=== PATIENT | male | born 1985 | race Two or more races ===

== ENCOUNTER 2018-10-17 23:29 | Emergency (ER) | payer SELFPAY ==
[~2018-10-17] VITALS: Ht 182.9 cm; Wt 80.3 kg
--- NOTE | 2018-10-17 23:46 | NUR ---
Note annaleeone in EDM - 10/17/18 at 2349 by PONCHO BIBSELF TO ER. TO ER BED 9. AAOX4. NO RESP DISTRESS NOTED. AMBULATORY. C/O BILATERAL INNER THIGH NUMBNESS WHICH IS FELT ALL THE WAY TO THE ANKLE X 5 DAYS. PT REPORTS FEELING LIGHT HEADED AND NAUSEOUS. PT ALSO REPORTS THAT HE SEES BLACK SPOTS. AWAITING MD FOR ANAYELI.
--- NOTE | 2018-10-17 23:49 | NUR ---
BIBSELF TO ER. TO ER BED 9. AAOX4. NO RESP DISTRESS NOTED. AMBULATORY. C/O BILATERAL INNER THIGH NUMBNESS WHICH IS FELT ALL THE WAY TO THE ANKLE X 5 DAYS. PT REPORTS FEELING LIGHT HEADED AND NAUSEOUS. PT ALSO REPORTS THAT HE SEES BLACK SPOTS. AWAITING MD FOR EVAL.
[2018-10-18 00:31] LABS: BASOPHILS % (AUTO) 0.5 % (0.0-2.0); EOSINOPHILS % (AUTO) 2.2 % (0.0-6.0); HEMATOCRIT 40 % (39-51); HEMOGLOBIN 12.8 g/dL (13.5-17.5); MEAN CORPUSCULAR HGB CONC 33 g/dl (31.0-36.0); MEAN CORPUSCULAR VOLUME 80 fL (80-96); MONOCYTES # (AUTO) 0.6 /CMM (0.1-1.30); MONOCYTES % (AUTO) 7.5 % (2.0-12.0); NEUTROPHILS # (AUTO) 4.6 /CMM (1.8-8.9); NEUTROPHILS % (AUTO) 62.8 % (43.0-81.0); PLATELET COUNT (AUTO) 227 /CMM (150-450); RED BLOOD CELL COUNT(AUTO) 4.96 MIL/uL (4.5-6.0); WHITE BLOOD COUNT (AUTO) 7.4 K/uL (4.3-11.0)
[2018-10-18 00:46] LABS: BILIRUBIN,TOTAL 0.4 mg/dL (0.2-1.0); CALCIUM, SERUM 8.7 mg/dL (8.5-10.1); CREATININE 0.9 mg/dL (0.6-1.3); POTASSIUM 3.8 mmol/L (3.5-5.1); TOTAL PROTEIN, SERUM 7.9 g/dL (6.4-8.2)
[2018-10-18 01:31] VITALS: BP 121/74
== END 2018-10-18 01:31 | disposition home or self-care (01) ==
LOC: ER 23:35
DX: F41.9 Anxiety disorder, unspecified (principal)
CPT/HCPCS: 36415; 80053-TC; 85025-TC

== ENCOUNTER 2019-03-12 18:46 | Emergency (ER) | payer SELFPAY ==
[~2019-03-12] VITALS: Ht 182.9 cm; Wt 79.4 kg
--- NOTE | 2019-03-12 21:25 | NUR ---
IV INITIATED RAC 20G. LABS DRAWN FROM SITE CHERRY CUTTER AT BEDSIDE FOR COLLECTION
[2019-03-12] MEDS ORDERED: IV NS 0.9% 1,000 ML BAG IV ONE (21:30)
--- NOTE | 2019-03-12 21:30 | NUR ---
BIBSELF C/O ABDOMINAL PAIN. PT STATES LAST BM X6 DAYS AGO. VITAL SIGNS STABLE. NO ACUTE DISTRESS NOTED AT THIS TIME. AMBULATORY WITH STEADY GAIT. WILL CONTINUE TO MONITOR
[2019-03-12 21:31] LABS: BASOPHILS % (AUTO) 0.3 % (0.0-2.0); HEMATOCRIT 43 % (39-51); HEMOGLOBIN 13.9 g/dL (13.5-17.5); LYMPHOCYTES # (AUTO) 1.6 /CMM (0.8-4.8); LYMPHOCYTES % (AUTO) 22.6 % (20.0-44.0); MEAN CORPUSCULAR HGB CONC 33 g/dl (31.0-36.0); MEAN CORPUSCULAR VOLUME 79 fL (80-96); MONOCYTES # (AUTO) 0.5 /CMM (0.1-1.30); MONOCYTES % (AUTO) 7.4 % (2.0-12.0); NEUTROPHILS # (AUTO) 4.8 /CMM (1.8-8.9); NEUTROPHILS % (AUTO) 68.7 % (43.0-81.0); PLATELET COUNT (AUTO) 255 /CMM (150-450); RED BLOOD CELL COUNT(AUTO) 5.38 MIL/uL (4.5-6.0)
[2019-03-12 21:38] LABS: CREATININE 1.1 mg/dL (0.6-1.3); POTASSIUM 3.6 mmol/L (3.5-5.1)
[2019-03-12 21:44] LABS: ALBUMIN 4.2 g/dL (3.4-5.0); BILIRUBIN,DIRECT 0.2 mg/dL (0.0-0.2); BILIRUBIN,TOTAL 1.1 mg/dL (0.2-1.0); TOTAL PROTEIN, SERUM 8.1 g/dL (6.4-8.2)
[2019-03-12 22:15] LABS: APPEARANCE,URINE Clear (CLEAR); BILIRUBIN,URINE Negative (NEGATIVE); BLOOD, URINE Negative Ery/uL (NEGATIVE); COLOR,URINE Yellow (YELLOW); KETONES,URINE Negative (NEGATIVE); LEUKOCYTE ESTERASE ,URINE Negative (NEGATIVE); NITRITE, URINE Negative (NEGATIVE); PROTEIN,URINE Negative (NEGATIVE); UGLUCOSE Negative (NEGATIVE); UROBILINOGEN,URINE 0.2 EU/dL (0.2)
[2019-03-12] MEDS ORDERED: MAGNESIUM CITRATE 296 ML BOTTLE ONE (23:00)
[2019-03-12] MEDS ORDERED: MAGNESIUM CITRATE 296 ML BOTTLE PO ONE (23:00)
--- NOTE | 2019-03-12 23:38 | NUR ---
Patient discharged to home in stable condition. Written and verbal after care instructions given. Patient verbalizes understanding of instruction. IV removed. Catheter intact and site benign. Pressure and 4x4 applied to site. No bleeding noted.
[2019-03-12 23:46] VITALS: BP 134/79
== END 2019-03-12 23:46 | disposition home or self-care (01) ==
LOC: EDBD 18:46 → ER 18:46
DX: K59.00 Constipation, unspecified (principal); R11.0 Nausea
CPT/HCPCS: 36415; 74022-TC; 80048-TC; 80076-TC; 81000-TC; 83690-TC; 85025-TC

== ENCOUNTER 2021-06-23 19:46 | Emergency (ER) | payer OTHER ==
[~2021-06-23] VITALS: Ht 182.9 cm; Wt 81.6 kg
--- NOTE | 2021-06-23 22:00 | NUR ---
BIBS FOR C/O WORSENING L ANKLE AND LOWER DIANE PAIN, SWELLING AND SKIN DISCOLORATION X2 WEEKS. PT AWAKE AND ALERT X4 AMBULATORY WITH STEADY GAIT. PT CHANGED INTO GOWN AND V/S WNL.
--- NOTE | 2021-06-23 23:31 | NUR ---
FUR REPAIRER AT BEDSIDE
--- NOTE | 2021-06-23 23:54 | NUR ---
Patient discharged to home in stable condition. Written and verbal after care instructions given. Patient verbalizes understanding of instruction.
[2021-06-24] VITALS: BP 123/87
== END 2021-06-24 00:01 | disposition home or self-care (01) ==
LOC: ER 19:49
DX: R60.9 Edema, unspecified (principal); B07.0 Plantar wart
CPT/HCPCS: 93971-TC